=== PATIENT | male | born 1950 | race Caucasian/White ===

== ENCOUNTER → 2019-02-10 | Outpatient (CLI) | payer OTHER, MEDICARE ==
[~2019-02-10] VITALS: Ht 182.9 cm; Wt 93.0 kg
[~2019-02-10] MED LIST: HYDROCODONE-AP1 EAC6 PO
[2019-02-10 09:00] LABS: HEMOGLOBIN 14.9 gm/dL (14.0-18.0); MCH 29.5 pg (26.0-34.0); MCHC 33.1 g/dL (28.0-37.0); MCV 88.9 fL (80.0-100.0); MPV 8.7 fl. (7.2-11.1); RBC 5.06 mil/uL (4.50-6.00); RDW-CV 13.7 % (10.5-14.5); WBC 5.1 thou/uL (4.0-11.0)
[2019-02-10 09:02] VITALS: BP 128/79
[2019-02-10 09:05] LABS: APTT 24.5 Seconds (25.0-31.3); PROTIME 9.9 Seconds (9.20-11.50)
[2019-02-10 09:10] LABS: ALBUMIN 3.6 g/dL (3.4-5.0); ALKALINE PHOSPHATASE 56 U/L (46-116); ANION GAP 9 mmol/L (7-16); CALCIUM 8.5 mg/dL (8.5-10.1); CHLORIDE 103 mmol/L (98-107); CHOLESTEROL 188 mg/dL (<200); CO2 26 mmol/L (21-32); CREATININE 1.2 mg/dL (0.6-1.3); GLUCOSE 101 mg/dL (70-99); HDL CHOLESTEROL 69 mg/dL (>40); LDL CHOLESTEROL 108 mg/dL (<100); POTASSIUM 4.3 mmol/L (3.5-5.1); SGOT 26 U/L (15-37); SGPT 44 U/L (30-65); SODIUM 138 mmol/L (136-145); TC:HDL 2.7 Ratio (Not establshd); TOTAL BILIRUBIN 0.6 mg/dL (<0.1-1.0); TOTAL PROTEIN 8.4 g/dL (6.4-8.2); TRIGLYCERIDE 58 mg/dL (<150); VLDL 12 mg/dL (<40)
[2019-02-10 09:30] LABS: BUN 28 mg/dL (7-18)
[2019-02-10 10:32] LABS: SERUM ASSESSMENT Clear
[2019-02-10 11:14] VITALS: BP 128/75
[2019-02-10 11:32] VITALS: BP 126/78
[2019-02-10 11:52] VITALS: BP 139/66
[2019-02-10 12:42] VITALS: BP 138/73
--- NOTE | 2019-02-10 12:42 | EKG ---
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1950 Requested By: Sage Pandey Order Number: [id number] Reading MD: Sage Pandey Measurements Intervals [place] Rate: 49 P: 49 [place]: 150 QRS: -21 QRSD: 93 T: -10 QT: 468 QTc: 423 Interpretive Statements Sinus bradycardia Borderline left axis deviation Nonspecific T abnormalities, anterior leads Baseline wander in lead(s) V6 No previous ECG available for comparison Electronically Signed On 02-10-2019 12:42:10 CDT by Sage Pandey [email or web address] <ELECTRONICALLY SIGNED> By: Sage Pandey MD, [facility] 02/10/19 1242 6 6 Sage Pandey MD, FACC /EPI
[2019-02-10 13:27] VITALS: BP 142/65
--- NOTE | 2019-02-10 14:01 | CARD ---
[address] [address] CARDIAC CATH REPORT Name: BLAKE PAIGE Room: [facility] Quang#: [id number] Admission: 02/10/19 Attend Phys: Sage Pandey MD, F Discharge: Date of : 48 Report #: [id number] THIS REPORT FOR: //name// APPROVED REPORT Study performed: 02/10/2019 09:53:42 Patient Details Patient Status: Out-Patient Room #: The patient is a 68 year-old male Event Personnel Sage Fairchild Procedures Performed cardiac cath Indication Arrhythmia, Syncope Admission/Lab Medications/Medications given during procedure Heparin Unfract. Procedure Narrative The patient was brought electively to the Cardiac Catheterization Laboratory and was prepped and draped in a sterile manner. The right wrist was infiltrated with 1% Lidocaine subcutaneous anesthesia. A 6 fr sheath was inserted into the right radial artery. Coronary angiography was performed using coronary diagnostic catheters. The right coronary system was accessed and visualized with a Diagnostic catheter. The left coronary system was accessed and visualized with a Diagnostic catheter. The left ventricle was accessed and visualized with a Diagnostic catheter. Left ventricular/Aortic Valve gradient assessed via catheter pullback. Left ventriculogram was performed in [place]AN[place] projection. Closure device was deployed with a 6 Fr vascband. The patient tolerated the procedure well and there were no complications associated with the procedure. There was no hematoma. Intraoperative Conscious Sedation Sedation start time: 1036 Case end Time: 1054 Fentanyl 25.0 mcg Versed 4.[address] [address] CARDIAC CATH REPORT Name: BLAKE PAIGE Room: [facility]#: [id number] Admission: 02/10/19 Attend Phys: Sage Pandey MD, F Discharge: Date of : 48 Report #: [id number] Fluoro Time: 1.8 minutes Dose: DAP 79985 cGycm2 716 mGy Contrast Type and Amount: omnipaque 70 Coronary Angiography The patient's coronary anatomy is right dominant. [place] Artery Percent Stenosis Left Main: 0 % Prox LAD: 0 % Mid/Distal LAD: 50 % Circumflex: 0 % RCA: 30 % Ramus: %Minimal mid lad myocardial bridge noted Left Ventriculography The left ventricular ejection fraction is estimated to be 60-65%. Left ventricular wall motion abnormalities are not present. There is no mitral insufficiency. Hemodynamics The aortic pressure is 125/60 mmHg with a mean of 87 mmHg. The left ventricular pressure is 109 mmHg with a mean of mmHg. The left ventricular end diastolic pressure is 12 mmHg. There was no gradient across the aortic valve upon pullback. Pullback from the left ventricle to the aorta revealed no gradient across the aortic valve. Conclusion 1. no significant cad 2. LVEF 60-65% Recommendations Refer to Neurology to evaluate for cause of syncope <ELECTRONICALLY SIGNED> By: Sage Pandey MD, FACC 02/10/19 1401 140 1401David Farhan Pandey MD, FACC /INF
== END | disposition home or self-care (01) ==
LOC: M.CL 08:10
PROVIDERS: Internal Medicine Cardiovascular Disease
DX: I47.2 Ventricular tachycardia (principal); R55 Syncope and collapse; Z90.49 Acquired absence of other specified parts of digestive tract; Z85.51 Personal history of malignant neoplasm of bladder; Z98.890 Other specified postprocedural states; Z79.899 Other long term (current) drug therapy